=== PATIENT | female | born 1975 | race Caucasian/White ===

== ENCOUNTER 2017-09-26 18:05 | Emergency (ER) | payer MEDICAID, OTHER ==
[~2017-09-26 18:05] MED LIST: FEXO180 PO; IBUP-238 PO; PRED20 PO; RANI150 PO
== END 2017-09-26 18:40 | disposition left against medical advice (07) ==
LOC: PHED 18:05
DX: Z53.21 Procedure and treatment not carried out due to patient leaving prior to being seen by health care provider (principal)
CPT/HCPCS: 99281

== ENCOUNTER 2017-11-13 07:15 | Emergency (ER) | payer MEDICAID ==
[~2017-11-13] VITALS: Ht 175.3 cm; Wt 73.0 kg
[2017-11-13 07:21] VITALS: BP 128/60; PULSE 67; RESP 16; TEMP 97.7; O2SAT 98
[2017-11-13] MEDS ORDERED: SODIUM CHLOR 0.9% 1000 ML INJ 1,000 ML IV ONE (07:45)
[2017-11-13] MEDS ORDERED: KETOROLAC TROMETHAMINE 30 MG/ML (IVP) VIAL IV PUSH ONE (07:45)
[2017-11-13 07:47] LABS: BILIRUBIN, URINE NEG (NEG); BLOOD, URINE NEG (NEG); GLUCOSE,URINE NEG (NEG); KETONE, URINE NEG (NEG); NITRITE,URINE NEG (NEG); URINE LEUKOCYTE ESTERASE MOD (NEG)
[2017-11-13 07:55] LABS: AUTOMATED NEUTROPHIL # 6.5 TH/MM3 (1.8-7.7); BASOPHIL % 0.5 % (0.0-2.0); EOSINOPHIL # 0.2 TH/MM3 (0-0.4); EOSINOPHIL % 2.3 % (0.0-4.0); HEMATOCRIT 32.4 % (35.0-46.0); HEMOGLOBIN 9.8 GM/DL (11.6-15.3); LYMPH % 26.7 % (9.0-44.0); LYMPHOCYTE # 2.6 TH/MM3 (1.0-4.8); MEAN CELL VOLUME 62.3 FL (80.0-100.0); MEAN CORPUSCULAR HEMOGLOBIN 18.7 PG (27.0-34.0); MEAN CORPUSCULAR HGB CONC 30.1 % (32.0-36.0); MEAN PLATELET VOLUME 8.8 FL (7.0-11.0); MONO % 6.3 % (0.0-8.0); MONOCYTE # 0.6 TH/MM3 (0-0.9); NEUT % 64.2 % (16.0-70.0); PLATELET COUNT 348 TH/MM3 (150-450); RED CELL DISTRIBUTION WIDTH 18.6 % (11.6-17.2); WHITE BLOOD COUNT 9.9 TH/MM3 (4.0-11.0)
[2017-11-13 08:05] LABS: URINE COLOR YELLOW (YELLW/STRAW)
[2017-11-13 08:06] LABS: BACTERIA, URINE RARE /hpf; RBC, URINE 0-3 /hpf (0-3); SQUAMOUS EPITHELIAL CELL URINE > 8 /hpf (0-5); WBC, URINE 15-19 /hpf (0-5)
[2017-11-13 08:20] LABS: CHLORIDE 107 MEQ/L (98-107); SODIUM (NA) 140 MEQ/L (136-145)
[2017-11-13 08:24] LABS: CALCIUM 8.3 MG/DL (8.5-10.1)
[2017-11-13 08:25] LABS: ALBUMIN 3.3 GM/DL (3.4-5.0); BICARBONATE 29.3 MEQ/L (21.0-32.0); BLOOD UREA NITROGEN 13 MG/DL (7-18); GLUCOSE,RANDOM 90 MG/DL (74-106)
[2017-11-13 08:28] LABS: ALT (GPT) 20 U/L (10-53); AST (GOT) 14 U/L (15-37); GLOMERULAR FILTRATION RATE 135 ML/MIN (>89)
[2017-11-13 08:30] LABS: TOTAL BILIRUBIN ADULT 0.5 MG/DL (0.2-1.0); TOTAL PROTEIN 7.8 GM/DL (6.4-8.2)
[2017-11-13 08:31] LABS: ALKALINE PHOSPHATASE 85 U/L (45-117)
[2017-11-13] MEDS ORDERED: MACR100C2 PO (08:50)
--- NOTE | 2017-11-13 08:50 | PD ---
HPI Chief Complaint: Abdominal Pain Time Seen by Provider: 07:35 Travel History International Travel<30 days: No Contact w/Intl Traveler<30days: [place] Traveled to: [facility] Traveled to known affect area: No History of Present Illness HPI Patient is a 42-year-old female who comes in complaining of lower abdominal pain that started yesterday. She says she had this once before a year or 2 ago , but she did not see the doctor. She says the pain is in her suprapubic area. She has not had a menstrual period in 2 months. She does report some brownish discharge about 10 days ago. She denies fever or chills. She had 3 days of diarrhea a few days ago. She denies nausea or vomiting. She denies fever or chills. She has not taken anything for her pain. Nothing makes the pain better or worse. PFSH Past Medical History Medical History: Denies Significant Hx Diminished Hearing: No Immunizations Current: Yes Influenza Vaccination: No ?: Unknown LMP: 10/13/17 Menopausal: No Past Surgical History Surgical History: No Previous Surgery Social History Alcohol Use: No Tobacco Use: No Substance Use: No Allergies-Medications (Allergen,Severity, Reaction): Coded Allergies: orange (Unverified Allergy, Severe, Swelling, 07/02/17) throat swelling grass pollen (Unverified Allergy, Intermediate, Swelling, 07/02/17) throat swelling Reported Meds & Prescriptions Reported Meds & Active Scripts Active No Active Prescriptions or Reported Medications Review of Systems Except as stated in HPI: all other systems reviewed are Neg General / Constitutional: No: Fever, Chills HENT: No: Headaches, Lightheadedness Cardiovascular: No: Chest Pain or Discomfort Respiratory: No: Shortness of Breath Gastrointestinal: Positive: Abdominal Pain, No: Nausea, Vomiting Genitourinary: No: Flank Pain Skin: No Rash, No Change in Pigmentation Neurologic: No: Weakness, Dizziness Physical Exam Narrative GENERAL: Awake and alert, in no acute distress. SKIN: Focused skin assessment warm/dry. HEAD: Atraumatic. Normocephalic. EYES: Pupils equal and round. No scleral icterus. ENT: Mucous membranes pink and moist. NECK: Trachea midline. No JVD. CARDIOVASCULAR: Regular rate and rhythm. No murmur appreciated. RESPIRATORY: No accessory muscle use. Clear to auscultation. Breath sounds equal bilaterally. GASTROINTESTINAL: Abdomen soft, nondistended. Tender to palpation of the suprapubic area. No rebound or guarding. No CVA tenderness. MUSCULOSKELETAL: No obvious deformities. No clubbing. No cyanosis. No edema. NEUROLOGICAL: Awake and alert. No obvious cranial nerve deficits. Motor grossly within normal limits. Normal speech. PSYCHIATRIC: Appropriate mood and affect; insight and judgment normal. Data Data Last Documented VS Vital Signs Date Time Temp Pulse Resp B/P (MAP) Pulse Ox O2 Delivery O2 Flow Rate FiO2 11/13/17 07:21 97.7 67 16 128/60 (82) 98 Orders Orders Urinalysis - C+S If Indicated (11/13/17 07:19) Ed Urine Pregnancytest Poc (11/13/17 07:19) Iv Access Insert/Monitor (11/13/17 07:40) Complete Blood Count With Diff (11/13/17 07:40) Comprehensive Metabolic Panel (11/13/17 07:40) Wet Prep Profile (11/13/17 07:40) Gc And Chlamydia Pcr (11/13/17 07:40) Sodium Chlor 0.9% 1000 Ml Inj (Ns 1000 M (11/13/17 07:45) Ketorolac Inj (Toradol Inj) (11/13/17 07:45) Urine Culture (11/13/17 07:29) Labs Laboratory Tests Test 11/13/17 07:29 11/13/17 07:50 11/13/17 08:15 Urine Collection Type Urine Color YELLOW Urine Turbidity SL Urine pH 7.0 Urine Specific [place] 1.022 Urine Protein NEG mg/dL Urine Glucose (UA) NEG mg/dL Urine Ketones NEG mg/dL Urine Occult Blood NEG Urine Nitrite NEG Urine Bilirubin NEG Urine Leukocyte Esterase MOD Urine RBC 0-3 /hpf Urine WBC 15-19 /hpf Urine Squamous Epithelial Cells > 8 /hpf Urine Bacteria RARE /hpf Microscopic Urinalysis Comment CULTURE INDICATED Urine Collection Time White Blood Count 9.9 TH/MM3 Red Blood Count 5.20 MIL/MM3 Hemoglobin 9.8 GM/DL Hematocrit 32.4 % Mean Corpuscular Volume 62.3 FL Mean Corpuscular Hemoglobin 18.7 PG Mean Corpuscular Hemoglobin Concent 30.1 % Red Cell Distribution Width 18.6 % Platelet Count 348 TH/MM3 Mean Platelet Volume 8.8 FL Neutrophils (%) (Auto) 64.2 % Lymphocytes (%) (Auto) 26.7 % Monocytes (%) (Auto) 6.3 % Eosinophils (%) (Auto) 2.3 % Basophils (%) (Auto) 0.5 % Neutrophils # (Auto) 6.5 TH/MM3 Lymphocytes # (Auto) 2.6 TH/MM3 Monocytes # (Auto) 0.6 TH/MM3 Eosinophils # (Auto) 0.2 TH/MM3 Basophils # (Auto) 0.0 TH/MM3 CBC Comment AUTO DIFF Differential Comment AUTO DIFF CONFIRMED Platelet Estimate NORMAL Platelet Morphology Comment NORMAL Red Cell Morphology Comment NORMAL Blood Urea Nitrogen 13 MG/DL Creatinine 0.50 MG/DL Random Glucose 90 MG/DL Total Protein 7.8 GM/DL Albumin 3.3 GM/DL Calcium Level 8.3 MG/DL Alkaline Phosphatase 85 U/L Aspartate Amino Transf (AST/SGOT) 14 U/L Alanine Aminotransferase (ALT/SGPT) 20 U/L Total Bilirubin 0.5 MG/DL Sodium Level 140 MEQ/L Potassium Level 3.8 MEQ/L Chloride Level 107 MEQ/L Carbon Dioxide Level 29.3 MEQ/L Anion Gap 4 MEQ/L Estimat Glomerular Filtration Rate 135 ML/MIN Clue Cells (Wet Prep) NONE SEEN Vaginal Trichomonas (Wet Prep) NONE SEEN Vaginal Yeast (Wet Prep) NONE SEEN MDM Medical Decision Making Medical Screen Exam Complete: Yes Emergency Medical Condition: Yes Medical Record Reviewed: Yes Differential Diagnosis UTI versus bacterial vaginosis versus ovarian cyst versus mittelschmerz syndrome Narrative Course Patient is a 42-year-old female who comes in complaining of lower abdominal pain. Exam shows tenderness to the suprapubic area. IV established, labs sent. Labs show no acute abnormalities. Urinalysis is positive for UTI. Wet prep is negative for any abnormalities. Patient given IV fluids and Toradol. She reports resolution of her symptoms. She'll be discharged with a prescription for Macrobid. Advised follow-up with gynecology. Advised to return to the ED as needed for any worsening symptoms. Diagnosis Primary Impression: UTI (urinary tract infection) Qualified Codes: N30.00 - Acute cystitis without hematuria Patient Instructions: General Instructions, Urinary Tract Infection in Women ( ED) Additional Instructions: Take all of your antibiotic. Take ibuprofen as needed for pain. Follow-up with gynecology. Return to the ED as needed for any worsening symptoms. Scripts Nitrofurantoin Monohydrate Macrocrystals (Macrobid) 100 Mg Capsule 100 MG PO BID for Infection for 5 Days, #10 CAP 0 Refills Prov: Denice Wilson MD 11/13/17 Disposition: 01 DISCHARGE HOME Condition: Stable Denice Wilson MD Nov 13, 2017 08:50
[2017-11-13 09:07] VITALS: BP 120/66
== END 2017-11-13 09:10 | disposition home or self-care (01) ==
LOC: PHED 07:15
DX: N39.0 Urinary tract infection, site not specified (principal); B96.89 Other specified bacterial agents as the cause of diseases classified elsewhere; R19.7 Diarrhea, unspecified
CPT/HCPCS: 80053; 81001; 84703; 85025; 87086; 87210; 87491; 87591; 96361; 96374; 99284; J1885; J7030

== ENCOUNTER 2018-05-05 20:22 | Emergency (ER) | payer OTHER, MEDICAID ==
[~2018-05-05] VITALS: Ht 144.8 cm; Wt 76.0 kg
[~2018-05-05 20:22] MED LIST changes: -FEXO180 PO; -IBUP-238 PO; +MACR100C2 PO; -PRED20 PO; -RANI150 PO
[2018-05-05 20:43] VITALS: BP 113/60; PULSE 73; RESP 16; TEMP 98.1; O2SAT 97
[2018-05-05] MEDS ORDERED: IBUPROFEN 600 MG TAB PO ONE (21:15)
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
[2018-05-05] MEDS ORDERED: IBUP-232 PO (22:07)
== END 2018-05-05 22:13 | disposition home or self-care (01) ==
LOC: PHED 20:22 → PHEFT 22:13
DX: S29.019A Strain of muscle and tendon of unspecified wall of thorax, initial encounter (principal); V49.49XA Driver injured in collision with other motor vehicles in traffic accident, initial encounter
CPT/HCPCS: 72072; 99283